=== PATIENT | female | born 1940 | race Caucasian/White ===

== ENCOUNTER 2016-07-22 12:05 | Emergency (ER) | payer MEDICARE, BC ==
[~2016-07-22] VITALS: Ht 160 cm; Wt 59.1 kg
[~2016-07-22 12:05] MED LIST: ALEVE 220MG220 MG PO; ATIVAN 0.50.5 MG/TAB; ATIVAN 1MG T1 MG/TAB PO; CIPRO 100MG TA100 MG PO; CRESTOR 10MG10 MG PO; FISH OIL1000 MG PO; KLONOPIN 1MG1 MG PO; LEVOXYL0.075 MG PO; LITHOBID 3300 MG/TAB; MULTIPLE VITAMI1 CAP PO; NORCO 325 MG-51 TAB PO; PAXIL 20MG20 MG PO; PAXIL20 MG PO; PAXIL40 MG; PROZAC 10MG10 MG PO; REMERON 15M15 MG/TA1; REMERON 15M15 MG/TA1 PO; SYNTHROID0.05 MG/TA PO; XANAX0.5 MG PO; ZOCOR 40MG40 MG PO; ZOCOR5 MG PO
[2016-07-22 12:09] VITALS: TEMP 98.5
[2016-07-22] MEDS ORDERED: BUSPAR5 MG PO (12:14)
[2016-07-22] MEDS ORDERED: MAGNESIUM100 MG PO (12:15)
[2016-07-22 13:19] LABS: BASO # 0.1 (0.0-0.2); BASO % 0.7 % (0.0-2.0); EOS # 0.1 (0.0-0.7); EOS % 1.7 % (0-4.0); GRAN # 5.3 (1.4-6.5); GRAN % 74.7 % (42.2-75.2); HEMOGLOBIN 14.3 g/dl (12.5-16.0); LYMPH # 1.1 (1.2-3.4); LYMPH % 15.3 % (20.0-51.0); MEAN CELL VOLUME 94 fl (80.0-100.0); MEAN CORPUSCULAR HEMOGLOBIN 31 pg (27.0-31.0); MEAN CORPUSCULAR HGB CONC 33 g/dl (33.0-37.0); MEAN PLATELET VOLUME 9.1 fl (7.4-10.4); MONO # 0.5 (0.1-0.6); MONO % 7.5 % (1.7-9.3); PLATELET COUNT 265 K/mm3 (130-400); RED BLOOD COUNT 4.59 M/mm3 (4.10-5.30); REDCELL DISTRIBUTION WIDTH-CV 12.1 % (11.5-14.5); WHITE BLOOD COUNT 7.1 K/mm3 (4.8-10.8)
[2016-07-22 13:35] LABS: ADJUSTED CALCIUM 9.4 mg/dL (8.4-10.2); ALANINE AMINOTRANSFERASE 30 U/L (9-52); ALBUMIN 4.4 gm/dL (3.5-5.0); ALKALINE PHOSPHATASE 80 U/L (50-136); ANION GAP 11 mmol/L (7-16); BILIRUBIN,TOTAL 0.7 mg/dL (0.0-1.0); BLOOD UREA NITROGEN 13 mg/dL (7-17); CALCIUM 9.7 mg/dL (8.4-10.2); CARBON DIOXIDE 29 mmol/L (22-30); CHLORIDE 100 mmol/L (98-107); CREATININE, serum 0.71 mg/dL (0.52-1.25); GLUCOSE 101 mg/dL (74-106); POTASSIUM 4.1 mmol/L (3.4-5.0); SODIUM 141 mmol/L (137-145); TOTAL PROTEIN 7.7 gm/dL (6.4-8.2)
[2016-07-22 13:36] LABS: C-REACTIVE PROTEIN < 0.5 mg/dL (0.0-0.9)
[2016-07-22 13:45] LABS: TROPONIN-I < 0.012 ng/mL (0.000-0.034)
[2016-07-22] MEDS ORDERED: MAGIC MOUTH PO (15:13)
[2016-07-22 15:17] VITALS: BP 115/52; PULSE 90
[2016-07-22 16:27] LABS: ERYTHROCYTE SEDIMENTATION RATE 7 mm/hr (0-30)
== END 2016-07-22 15:21 | disposition home or self-care (01) ==
LOC: COL.ER 12:05
PROVIDERS: Physician Assistant
DX: M25.512 Pain in left shoulder (principal); R51 Headache; G89.29 Other chronic pain
CPT/HCPCS: J2060; J2270; J2405

== ENCOUNTER 2016-07-28 16:51 | Emergency (ER) | payer MEDICARE, BC ==
[~2016-07-28] VITALS: Ht 160 cm; Wt 59.1 kg
[~2016-07-28 16:51] MED LIST changes: +BUSPAR5 MG PO; +MAGIC MOUTH PO; +MAGNESIUM100 MG PO
[2016-07-28 17:05] VITALS: BP 117/65; TEMP 98.3
[2016-07-28 17:40] LABS: BASO % 0.7 % (0.0-2.0); EOS # 0.3 (0.0-0.7); EOS % 4.6 % (0-4.0); GRAN # 4.4 (1.4-6.5); GRAN % 70.8 % (42.2-75.2); HEMATOCRIT 38.5 % (37.0-47.0); HEMOGLOBIN 12.8 g/dl (12.5-16.0); LYMPH # 0.9 (1.2-3.4); LYMPH % 13.8 % (20.0-51.0); MEAN CELL VOLUME 94 fl (80.0-100.0); MEAN CORPUSCULAR HEMOGLOBIN 31 pg (27.0-31.0); MEAN CORPUSCULAR HGB CONC 33 g/dl (33.0-37.0); MEAN PLATELET VOLUME 9.2 fl (7.4-10.4); MONO # 0.6 (0.1-0.6); MONO % 9.6 % (1.7-9.3); PLATELET COUNT 264 K/mm3 (130-400); WHITE BLOOD COUNT 6.2 K/mm3 (4.8-10.8)
[2016-07-28 17:51] LABS: ADJUSTED CALCIUM 8.9 mg/dL (8.4-10.2); ALANINE AMINOTRANSFERASE 34 U/L (9-52); ALBUMIN 3.7 gm/dL (3.5-5.0); ALKALINE PHOSPHATASE 76 U/L (50-136); ANION GAP 12 mmol/L (7-16); BILIRUBIN,TOTAL 0.5 mg/dL (0.0-1.0); BLOOD UREA NITROGEN 11 mg/dL (7-17); CALCIUM 8.7 mg/dL (8.4-10.2); CARBON DIOXIDE 26 mmol/L (22-30); CHLORIDE 102 mmol/L (98-107); CREATININE, serum 0.67 mg/dL (0.52-1.25); GLUCOSE 74 mg/dL (74-106); POTASSIUM 3.9 mmol/L (3.4-5.0); SODIUM 140 mmol/L (137-145); TOTAL PROTEIN 6.8 gm/dL (6.4-8.2)
[2016-07-28 17:52] LABS: AMPHETAMINE URINE NEGATIVE; BARBITURATES URINE NEGATIVE; BENZODIAZEPINES URINE POSITIVE; BUPRENORPHINE URINE NEGATIVE; METHADONE URINE NEGATIVE; OPIATES URINE NEGATIVE; OXYCODONE URINE NEGATIVE; PHENCYCLIDINE URINE NEGATIVE; PROPOXYPHENE URINE NEGATIVE; THC CANNABINOIDS URINE NEGATIVE
[2016-07-28 17:52] LABS: ACETAMINOPHEN < 10 ug/mL (10-30); SALICYLATE < 1.0 mg/dL
[2016-07-28 21:11] VITALS: PULSE 80
== END 2016-07-28 21:12 | disposition home or self-care (01) ==
LOC: COL.ER 16:51
PROVIDERS: Emergency Medicine
DX: R45.851 Suicidal ideations (principal); F32.9 Major depressive disorder, single episode, unspecified; F41.9 Anxiety disorder, unspecified

== ENCOUNTER 2016-08-09 13:15 | Outpatient (RCR) | payer MEDICARE, BC ==
[2016-08-13] MEDS ORDERED: FLEXERIL 1010 MG/TAB PO (17:43)
[2016-08-13] MEDS ORDERED: MOTRIN 400400 MG/TAB PO (17:43)
[2016-09-28] MEDS ORDERED: LEXAPRO 10MG10 MG PO (08:29)
[2016-09-28] MEDS ORDERED: BUSPIRONE HCL7.5 MG PO (08:30)
[2016-09-28] MEDS ORDERED: XANAX 0.5MG0.5 MG PO (08:34)
== END 2016-10-02 13:03 | disposition home or self-care (01) ==
LOC: WSPT 13:15
DX: M62.838 Other muscle spasm (principal)
CPT/HCPCS: G0283-GP; G8981-GP; G8982-GP; G8983-GP

== ENCOUNTER 2016-08-13 12:25 | Emergency (ER) | payer MEDICARE, BC ==
[~2016-08-13] VITALS: Ht 160 cm; Wt 58.7 kg
[2016-08-13 12:28] VITALS: TEMP 98
[2016-08-13 13:46] LABS: BASO % 0.7 % (0.0-2.0); EOS # 0.2 (0.0-0.7); EOS % 3.2 % (0-4.0); GRAN # 4.1 (1.4-6.5); GRAN % 69.8 % (42.2-75.2); HEMATOCRIT 41.4 % (37.0-47.0); HEMOGLOBIN 13.6 g/dl (12.5-16.0); LYMPH # 1.1 (1.2-3.4); LYMPH % 17.8 % (20.0-51.0); MEAN CELL VOLUME 95 fl (80.0-100.0); MEAN CORPUSCULAR HEMOGLOBIN 31 pg (27.0-31.0); MEAN CORPUSCULAR HGB CONC 33 g/dl (33.0-37.0); MEAN PLATELET VOLUME 9.2 fl (7.4-10.4); MONO # 0.5 (0.1-0.6); MONO % 8.2 % (1.7-9.3); PLATELET COUNT 276 K/mm3 (130-400); RED BLOOD COUNT 4.35 M/mm3 (4.10-5.30); REDCELL DISTRIBUTION WIDTH-CV 11.8 % (11.5-14.5); WHITE BLOOD COUNT 5.9 K/mm3 (4.8-10.8)
[2016-08-13 14:03] LABS: ADJUSTED CALCIUM 9.2 mg/dL (8.4-10.2); ALANINE AMINOTRANSFERASE 33 U/L (9-52); ALBUMIN 4.3 gm/dL (3.5-5.0); ALKALINE PHOSPHATASE 85 U/L (50-136); ANION GAP 12 mmol/L (7-16); BILIRUBIN,TOTAL 0.7 mg/dL (0.0-1.0); BLOOD UREA NITROGEN 12 mg/dL (7-17); CALCIUM 9.4 mg/dL (8.4-10.2); CARBON DIOXIDE 28 mmol/L (22-30); CHLORIDE 100 mmol/L (98-107); CREATININE, serum 0.68 mg/dL (0.52-1.25); GLUCOSE 94 mg/dL (74-106); POTASSIUM 3.8 mmol/L (3.4-5.0); SODIUM 141 mmol/L (137-145); TOTAL PROTEIN 7.6 gm/dL (6.4-8.2)
[2016-08-13 14:04] LABS: ACETAMINOPHEN < 10 ug/mL (10-30); SALICYLATE < 1.0 mg/dL
[2016-08-13 14:52] LABS: AMPHETAMINE URINE NEGATIVE; BARBITURATES URINE NEGATIVE; BENZODIAZEPINES URINE POSITIVE; BUPRENORPHINE URINE NEGATIVE; METHADONE URINE NEGATIVE; OPIATES URINE NEGATIVE; OXYCODONE URINE NEGATIVE; PHENCYCLIDINE URINE NEGATIVE; PROPOXYPHENE URINE NEGATIVE; THC CANNABINOIDS URINE NEGATIVE
[2016-08-13] MEDS ORDERED: FLEXERIL 1010 MG/TAB PO (17:43)
[2016-08-13] MEDS ORDERED: MOTRIN 400400 MG/TAB PO (17:43)
[2016-08-13 19:08] VITALS: BP 162/84; PULSE 82
== END 2016-08-13 19:10 ==
LOC: COL.ER 12:25
PROVIDERS: Physician Assistant
DX: R45.851 Suicidal ideations (principal); F32.9 Major depressive disorder, single episode, unspecified; F41.9 Anxiety disorder, unspecified

== ENCOUNTER → 2016-09-04 | Outpatient (CLI) | payer MEDICARE, BC ==
[~2016-09-04] MED LIST changes: +BUSPIRONE HCL7.5 MG PO; +FLEXERIL 1010 MG/TAB PO; +LEXAPRO 10MG10 MG PO; +MOTRIN 400400 MG/TAB PO; +XANAX 0.5MG0.5 MG PO
== END ==
LOC: MC.RAD 09:20
DX: Z12.31 Encounter for screening mammogram for malignant neoplasm of breast (principal)

== ENCOUNTER 2016-09-28 08:10 | Observation (INO) | payer MEDICARE, BC ==
[~2016-09-28] VITALS: Ht 165.1 cm; Wt 61.4 kg
[~2016-09-28 08:10] MED LIST changes: -BUSPIRONE HCL7.5 MG PO; -LEXAPRO 10MG10 MG PO; -XANAX 0.5MG0.5 MG PO
[2016-09-28] MEDS ORDERED: LEXAPRO 10MG10 MG PO (08:29)
[2016-09-28] MEDS ORDERED: BUSPIRONE HCL7.5 MG PO (08:30)
[2016-09-28] MEDS ORDERED: XANAX 0.5MG0.5 MG PO (08:34)
[2016-09-28 09:22] LABS: BASO % 0.8 % (0.0-2.0); EOS # 0.1 (0.0-0.7); EOS % 2.1 % (0-4.0); GRAN # 3.4 (1.4-6.5); GRAN % 71.9 % (42.2-75.2); HEMATOCRIT 42.2 % (37.0-47.0); HEMOGLOBIN 14.2 g/dl (12.5-16.0); LYMPH # 0.8 (1.2-3.4); LYMPH % 16.3 % (20.0-51.0); MEAN CELL VOLUME 92 fl (80.0-100.0); MEAN CORPUSCULAR HEMOGLOBIN 31 pg (27.0-31.0); MEAN CORPUSCULAR HGB CONC 34 g/dl (33.0-37.0); MONO # 0.4 (0.1-0.6); MONO % 8.3 % (1.7-9.3); PLATELET COUNT 252 K/mm3 (130-400); RED BLOOD COUNT 4.61 M/mm3 (4.10-5.30); REDCELL DISTRIBUTION WIDTH-CV 11.7 % (11.5-14.5); WHITE BLOOD COUNT 4.7 K/mm3 (4.8-10.8)
[2016-09-28 09:51] LABS: ADJUSTED CALCIUM 9.3 mg/dL (8.4-10.2); ALANINE AMINOTRANSFERASE 29 U/L (9-52); ALBUMIN 4.1 gm/dL (3.5-5.0); ALKALINE PHOSPHATASE 62 U/L (50-136); ANION GAP 12 mmol/L (7-16); BILIRUBIN,TOTAL 0.6 mg/dL (0.0-1.0); BLOOD UREA NITROGEN 18 mg/dL (7-17); CALCIUM 9.4 mg/dL (8.4-10.2); CARBON DIOXIDE 27 mmol/L (22-30); CHLORIDE 100 mmol/L (98-107); CREATININE, serum 0.63 mg/dL (0.52-1.25); GLUCOSE 100 mg/dL (74-106); LIPASE 78 U/L (23-300); MAGNESIUM 1.9 mg/dL (1.6-2.3); PHOSPHOROUS 3.5 mg/dL (2.5-4.5); POTASSIUM 4.6 mmol/L (3.4-5.0); SODIUM 140 mmol/L (137-145); TOTAL PROTEIN 6.9 gm/dL (6.4-8.2)
[2016-09-28 09:54] LABS: ACETAMINOPHEN < 10 ug/mL (10-30); SALICYLATE < 1.0 mg/dL
[2016-09-28 10:04] LABS: PH 7 (5-8); SQUAMOUS EPITHELIAL 0-2 /hpf; URINE APPEARANCE Clear; URINE BACTERIA None Seen /hpf; URINE BILIRUBIN Negative (NEGATIVE); URINE BLOOD Negative (NEGATIVE); URINE COLOR Yellow; URINE GLUCOSE Negative (NEGATIVE); URINE KETONE Negative (NEGATIVE); URINE RBC 0-2 /hpf; URINE UROBILINOGEN Negative (NEGATIVE); URINE WBC 0-2 /hpf
[2016-09-28 10:04] LABS: TROPONIN-I < 0.012 ng/mL (0.000-0.034)
[2016-09-28 10:15] LABS: AMPHETAMINE URINE NEGATIVE; BARBITURATES URINE NEGATIVE; BENZODIAZEPINES URINE POSITIVE; BUPRENORPHINE URINE NEGATIVE; METHADONE URINE NEGATIVE; OPIATES URINE NEGATIVE; OXYCODONE URINE NEGATIVE; PHENCYCLIDINE URINE NEGATIVE; PROPOXYPHENE URINE NEGATIVE; THC CANNABINOIDS URINE NEGATIVE
[2016-09-28 19:45] VITALS: BP 122/70; PULSE 75; TEMP 98
[2016-09-28 20:16] VITALS: BP 140/68; PULSE 70; TEMP 97.7
== END 2016-09-29 03:57 ==
LOC: COL.ER 08:10 → ICU 15:41
PROVIDERS: Emergency Medicine
DX: R45.851 Suicidal ideations (principal); F33.2 Major depressive disorder, recurrent severe without psychotic features; F41.0 Panic disorder [episodic paroxysmal anxiety]; F41.1 Generalized anxiety disorder
CPT/HCPCS: G0378

== ENCOUNTER → 2017-09-05 | Outpatient (CLI) | payer MEDICARE, BC ==
[~2017-09-05] MED LIST changes: +BUSPIRONE HCL7.5 MG PO; +LEXAPRO 10MG10 MG PO; +XANAX 0.5MG0.5 MG PO
== END ==
LOC: MC.RAD 14:28
DX: Z12.31 Encounter for screening mammogram for malignant neoplasm of breast (principal)

== ENCOUNTER → 2018-09-08 | Outpatient (CLI) | payer MEDICARE, BC | LOC: MC.RAD 09:30 | DX: Z12.31 Encounter for screening mammogram for malignant neoplasm of breast (principal) ==

== ENCOUNTER 2018-11-29 12:42 | Emergency (ER) | payer OTHER, BC, MEDICARE ==
[~2018-11-29] VITALS: Ht 160 cm; Wt 70.9 kg
[2018-11-29] MEDS ORDERED: BRINTELLIX10 PO (13:12)
[2018-11-29] MEDS ORDERED: NEURONTIN400 MG/CAP PO (13:13)
[2018-11-29] MEDS ORDERED: ATIVAN 0.50.5 MG/TAB PO (13:13)
[2018-11-29] MEDS ORDERED: SINEQUAN75 MG PO (13:14)
[2018-11-29 15:09] VITALS: BP 128/66; PULSE 74; TEMP 98.3
== END 2018-11-29 15:05 | disposition home or self-care (01) ==
LOC: COL.ER 12:42
DX: S30.0XXA Contusion of lower back and pelvis, initial encounter (principal); S40.022A Contusion of left upper arm, initial encounter; W10.9XXA Fall (on) (from) unspecified stairs and steps, initial encounter; Y92.009 Unspecified place in unspecified non-institutional (private) residence as the place of occurrence of the external cause
CPT/HCPCS: J1885

== ENCOUNTER 2018-12-06 15:17 | Observation (INO) | payer MEDICARE, BC ==
[~2018-12-06] VITALS: Ht 160 cm; Wt 70.0 kg
[~2018-12-06 15:17] MED LIST changes: +ATIVAN 0.50.5 MG/TAB PO; +BRINTELLIX10 PO; +NEURONTIN400 MG/CAP PO; +SINEQUAN75 MG PO
[2018-12-06 16:00] LABS: BASO # 0.1 (0.0-0.2); BASO % 0.9 % (0.0-2.0); EOS # 0.2 (0.0-0.7); EOS % 2.6 % (0-4.0); GRAN # 4.2 (1.4-6.5); GRAN % 71.6 % (42.2-75.2); HEMATOCRIT 40.4 % (37.0-47.0); HEMOGLOBIN 13.3 g/dl (12.5-16.0); LYMPH # 0.9 (1.2-3.4); LYMPH % 16.1 % (20.0-51.0); MEAN CELL VOLUME 94 fl (80.0-100.0); MEAN CORPUSCULAR HEMOGLOBIN 31 pg (27.0-31.0); MEAN CORPUSCULAR HGB CONC 33 g/dl (33.0-37.0); MEAN PLATELET VOLUME 9.2 fl (7.4-10.4); MONO # 0.5 (0.1-0.6); MONO % 8.5 % (1.7-9.3); PLATELET COUNT 228 K/mm3 (130-400); REDCELL DISTRIBUTION WIDTH-CV 12.3 % (11.5-14.5)
[2018-12-06 16:03] LABS: PROTHROMBIN TIME 11.6 SECONDS (9.7-12.8)
[2018-12-06 16:07] LABS: ALANINE AMINOTRANSFERASE 17 U/L (9-52); ALBUMIN 3.8 gm/dL (3.5-5.0); ALKALINE PHOSPHATASE 74 U/L (50-136); ANION GAP 10 mmol/L (7-16); AST,SGOT 36 U/L (15-37); BILIRUBIN,TOTAL 0.4 mg/dL (0.0-1.0); BLOOD UREA NITROGEN 12 mg/dL (7-17); CALCIUM 8.9 mg/dL (8.4-10.2); CARBON DIOXIDE 25 mmol/L (22-30); CHLORIDE 105 mmol/L (98-107); CREATINE KINASE 54 U/L (30-135); CREATININE, serum 0.72 (0.52-1.25); GLUCOSE 126 mg/dL (74-106); POTASSIUM 3.9 mmol/L (3.4-5.0); SODIUM 140 mmol/L (137-145); TOTAL PROTEIN 6.7 gm/dL (6.4-8.2)
[2018-12-06] MEDS ORDERED: PROBIOTIC ACID1 EAC3 PO (16:17)
[2018-12-06 16:25] LABS: TROPONIN-I < 0.012 ng/mL (0.000-0.035)
--- NOTE | 2018-12-06 19:45 | NUR ---
Patient arrived to medical floor at this time.
[2018-12-06 21:26] VITALS: BP 143/55; PULSE 63; TEMP 97.6
--- NOTE | 2018-12-06 21:45 | NUR ---
Patient assessed. Reported pain to head. Ice packs help to area. Stated that she has had problems with headaches since she fell down the stairs last week. Stated she did go to the ER and was told she may have a concussion. Peripheral IV to left forearm flushed. Site is without redness, warmth, and swelling. NS running at 30 ml/hr. On oxygen at 2 L/min via NC. Denies having SOB and dyspnea. LS CTA. On tele. Denies having chest pain and discomfort at this time. BSAx4. Abdomen soft and non-tender. Voices no questions, needs, or concerns at this time. Given sandwich as requested. In bed watching TV at this time. Call light is within reach.
[2018-12-06 23:53] VITALS: BP 138/58; PULSE 69
--- NOTE | 2018-12-06 23:56 | NUR ---
PT WAS ASSISTED TO BATHROOM, BUT BEFORE SHE GOT UP SHE ADVISED THAT HER LEFT CHEST WAS STARTING TO HURT LIKE IT DID BEFORE AND SHE RATED IT AT A 3/10. CALLED RIA EISENBERG AND ADVISED OF PT'S CHEST PAIN. ALSO THAT NITRO-BID WAS PLACED ON LEFT SIDE OF CHEST AND GIVEN ICE REQUESTED BY PT. RECEIVED ORDERS TO GIVE 2MG IV MORPHINE IF VS GOOD AND EKG. RT NOTIFIED AND EKG DONE, ALSO MORPHINE GIVEN, VS WNL.
--- NOTE | 2018-12-07 00:01 | NUR ---
CALLED RIA EISENBERG TO ADVISED OF EKG, BUT HOUSESUPERVISOR IRVING ANSWERED PHONE AND INFO GIVEN TO HER.
[2018-12-07 00:16] VITALS: BP 139/48; PULSE 69; TEMP 97.7
--- NOTE | 2018-12-07 00:25 | NUR ---
PT ADVISES THAT PAIN IS BETTER. CALL LIGHT WITHIN REACH.
--- NOTE | 2018-12-07 01:13 | NUR ---
PT HAD MODERATE AMOUNT OF BLOOD WITH STOOL IN TOILET. PT ADVISED THAT SHE DOES HAVE HEMROIDS. CHECKED RECTAL AREA AND ONE OF PT'S HEMROIDS WAS OPEN AND RED. PT HAD SOME BLOOD ON UNDERWEAR. HEMROID WAS NOT BLEEDING WHEN EXAMINED. CALLED RIA EISENBERG AND SHE WAS NOTFIED, WAS ADVISED TO PASS IT ONTO DAYSHIFT.
[2018-12-07 03:39] VITALS: BP 142/65; PULSE 63; TEMP 97.9
--- NOTE | 2018-12-07 05:13 | NUR ---
Patient stated that she was having chest pain, worse when taking deep breaths on left side. Given 1 mg PRN Morphine per orders, which has been effective. NS continues to run at 30 ml/hr to peripheral IV to left forearm. Calls for assistance when needed. Continues to have ice pack for headache, which patient reports helps most of the time. Denies having any questions, needs, or concerns at this time. Resting in bed with eyes closed at this time. Call light is within reach.
--- NOTE | 2018-12-07 07:00 | NUR ---
Report given to day shift nurse.
[2018-12-07 07:52] VITALS: BP 134/75; PULSE 67; TEMP 98.9
--- NOTE | 2018-12-07 08:08 | NUR ---
Pt alert and oriented. Pt feeling alot of anxiety this am and is worried about home meds. Pt has labored breathing with 2L oxygen via nasal cannula and saturation in mid 90's. Pt states it is most likely d/t anxiety. Pt reports some left chest tightness. Pt 1 assist to bathroom. Pt IV intact no redness or infiltration noted. Pt has call light in reach and will reassess pain/anxiety after morphine given.
[2018-12-07 08:45] LABS: BASO # 0.1 (0.0-0.2); BASO % 0.9 % (0.0-2.0); EOS # 0.2 (0.0-0.7); GRAN # 3.8 (1.4-6.5); GRAN % 70.1 % (42.2-75.2); HEMATOCRIT 43.4 % (37.0-47.0); HEMOGLOBIN 14.3 g/dl (12.5-16.0); LYMPH # 0.9 (1.2-3.4); LYMPH % 16.6 % (20.0-51.0); MEAN CELL VOLUME 95 fl (80.0-100.0); MEAN CORPUSCULAR HEMOGLOBIN 31 pg (27.0-31.0); MEAN CORPUSCULAR HGB CONC 33 g/dl (33.0-37.0); MEAN PLATELET VOLUME 9.8 fl (7.4-10.4); MONO # 0.5 (0.1-0.6); MONO % 9.2 % (1.7-9.3); PLATELET COUNT 210 K/mm3 (130-400); RED BLOOD COUNT 4.58 M/mm3 (4.10-5.30); REDCELL DISTRIBUTION WIDTH-CV 12.1 % (11.5-14.5)
[2018-12-07 09:00] LABS: ALANINE AMINOTRANSFERASE 21 U/L (9-52); ALBUMIN 3.8 gm/dL (3.5-5.0); ALKALINE PHOSPHATASE 79 U/L (50-136); ANION GAP 8 mmol/L (7-16); AST,SGOT 36 U/L (15-37); BILIRUBIN,TOTAL 0.6 mg/dL (0.0-1.0); BLOOD UREA NITROGEN 11 mg/dL (7-17); CARBON DIOXIDE 30 mmol/L (22-30); CHLORIDE 104 mmol/L (98-107); CREATININE, serum 0.69 (0.52-1.25); GLUCOSE 96 mg/dL (74-106); MAGNESIUM 2.1 mg/dL (1.6-2.3); PHOSPHOROUS 2.7 mg/dL (2.5-4.5); POTASSIUM 4.6 mmol/L (3.4-5.0); SODIUM 142 mmol/L (137-145); TOTAL PROTEIN 6.9 gm/dL (6.4-8.2)
[2018-12-07 09:18] LABS: TROPONIN-I < 0.012 ng/mL (0.000-0.035)
--- NOTE | 2018-12-07 11:02 | NUR ---
JENNY met with the patient and her daughter and [facility] [place] , to discuss a discharge plan. The pt lives alone in [place] and has a CPAP and receives supplies from [employer]. The pt reports independence with ADLs. The pt's PCP is Dr. Briones and pt receives her medications from [email or web address] with no difficulties. The pt does not have advanced directives in the EMR but reports she does have them completed. The pt plans to return home upon discharge. There are no additional needs at this time.
[2018-12-07 12:36] VITALS: BP 133/51; PULSE 71; TEMP 98.4
[2018-12-07 17:13] VITALS: BP 120/58; PULSE 73; TEMP 97.8
--- NOTE | 2018-12-07 18:30 | NUR ---
Pt alert and oriented. Pt denies pain or SOB at rest. Pt has nitro paste to left chest. Pt IV in RW patent no redness or infiltration. Pt has visitors in and out today. Pt has call light in reach and denies needs at this time. Pt NPO after midnight tonight for stress test order by DR. Martinez.
[2018-12-07 19:51] VITALS: BP 109/67; PULSE 77; TEMP 98.3
--- NOTE | 2018-12-07 20:20 | NUR ---
Patient assessed at this time. Alert and oriented x 4, and able to make needs known. Denies having pain and discomfort. Did request ice pack for head, stating that she likes the way it feels on her head, but again denied having pain and discomfort to head. Peripheral IV to right wrist flushed. Site is without redness, warmth, swelling, and pain. Patient on oxygen at 2 L/min via NC. Denies having SOB and dyspnea. LS CTA. Respirations even and unlabored. HRR. Telemetry in place. Denies having chest pain and discomfort. Continues to receive Nitro paste per orders. BSAx4. Abdomen is soft and non-tender. No edema noted. Patient sitting up in bed reading at this time. Denies having any questions, needs, or concerns. Reminded patient that she is to be NPO after midnight for stress test tomorrow. Voices understanding. Call light is within reach.
[2018-12-08 00:14] VITALS: BP 116/47; PULSE 65; TEMP 97.4
[2018-12-08 03:42] VITALS: BP 127/51; PULSE 67; TEMP 97.4
--- NOTE | 2018-12-08 05:31 | NUR ---
Patient has been NPO since midnight for stress test. Took medication with sips of water. Denies having any questions, needs, or concerns. Denies having any chest pain or discomfort. Resting in bed with call light within reach.
[2018-12-08 06:10] VITALS: BP 127/51; PULSE 67
--- NOTE | 2018-12-08 08:18 | NUR ---
Assessment completed, alert/oriented, vital signs stable, denies any chest pain or discomfort, serial Troponin negative, heart RRR/distal pulses are palapble, SR on tele, lungs CTA/ no reps.difficulty noted, she is scheduled for a treadmill stress test this morning, she has been NPO, denies needs at [facility]
[2018-12-08 08:22] VITALS: BP 129/55; PULSE 71; TEMP 97.9
--- NOTE | 2018-12-08 09:00 | NUR ---
Patient is going down for her treadmill stress test at this time
[2018-12-08 11:01] VITALS: BP 153/60; PULSE 72; TEMP 98.4
--- NOTE | 2018-12-08 12:09 | NUR ---
Discharge instructions reviewed with the patient, instructed to follow up with PCP and cardiology as noe, instructed to continue previous home meds as prior to hospitilization, NO new meds or changes made, IV removed from right wrist, tele removed and taken to ICU, she is dressed and eating lunch, family present, I will personally escort them out the door
== END 2018-12-08 14:39 | disposition home or self-care (01) ==
LOC: COL.ER 15:17 → MEDICAL 17:24
PROVIDERS: Emergency Medicine; ADMIT Family Medicine
DX: R07.9 Chest pain, unspecified (principal); E78.5 Hyperlipidemia, unspecified; E03.9 Hypothyroidism, unspecified; F41.9 Anxiety disorder, unspecified; F32.9 Major depressive disorder, single episode, unspecified; Z90.710 Acquired absence of both cervix and uterus; Z87.891 Personal history of nicotine dependence; Z88.8 Allergy status to other drugs, medicaments and biological substances; M19.90 Unspecified osteoarthritis, unspecified site; K58.9 Irritable bowel syndrome, unspecified
CPT/HCPCS: 99222-AI; 99233-AI; 99239; A9500; G0378; J1650; J2270; J7030

== ENCOUNTER 2019-10-14 11:13 | Emergency (ER) | payer MEDICARE, BC ==
[~2019-10-14] VITALS: Ht 160 cm; Wt 66.4 kg
[~2019-10-14 11:13] MED LIST changes: +PROBIOTIC ACID1 EAC3 PO
[2019-10-14 11:18] VITALS: TEMP 97.8
[2019-10-14 11:52] LABS: BASO % 0.5 % (0.0-2.0); EOS # 0.1 (0.0-0.7); EOS % 2.1 % (0-4.0); GRAN # 5.1 (1.4-6.5); GRAN % 77.2 % (42.2-75.2); HEMATOCRIT 46.1 % (37.0-47.0); HEMOGLOBIN 15.2 g/dl (12.5-16.0); LYMPH # 0.8 (1.2-3.4); LYMPH % 11.7 % (20.0-51.0); MEAN CELL VOLUME 96 fl (80.0-100.0); MEAN CORPUSCULAR HEMOGLOBIN 32 pg (27.0-31.0); MEAN CORPUSCULAR HGB CONC 33 g/dl (33.0-37.0); MEAN PLATELET VOLUME 9.2 fl (7.4-10.4); MONO # 0.5 (0.1-0.6); MONO % 8.2 % (1.7-9.3); PLATELET COUNT 222 K/mm3 (130-400); REDCELL DISTRIBUTION WIDTH-CV 12.6 % (11.5-14.5)
[2019-10-14 11:58] LABS: ALANINE AMINOTRANSFERASE 37 U/L (4-34); ALBUMIN 4.4 gm/dL (3.5-5.0); ALKALINE PHOSPHATASE 96 U/L (50-136); ANION GAP 9 mmol/L (7-16); AST,SGOT 37 U/L (15-37); BILIRUBIN,TOTAL 0.6 mg/dL (0.0-1.0); BLOOD UREA NITROGEN 16 mg/dL (7-17); CALCIUM 9.5 mg/dL (8.4-10.2); CARBON DIOXIDE 27 mmol/L (22-30); CHLORIDE 103 mmol/L (98-107); CREATININE, serum 0.84 (0.52-1.25); GLUCOSE 164 mg/dL (74-106); POTASSIUM 4.1 mmol/L (3.4-5.0); SODIUM 139 mmol/L (137-145); TOTAL PROTEIN 7.6 gm/dL (6.4-8.2)
[2019-10-14 12:11] LABS: INR 0.9 (0.8-3.0); PROTHROMBIN TIME 10.5 SECONDS (9.7-12.8)
[2019-10-14 12:13] LABS: TROPONIN-I < 0.012 ng/mL (0.000-0.035)
[2019-10-14 12:14] LABS: PARTIAL THROMBOPLASTIN TIME 25.6 SECONDS (26.0-37.0)
[2019-10-14] MEDS ORDERED: FLEXERIL5 MG PO (13:06)
[2019-10-14] MEDS ORDERED: VOLTAREN 75 DR75 MG PO (13:06)
[2019-10-14 13:30] VITALS: BP 121/54; PULSE 80
== END 2019-10-14 13:30 | disposition home or self-care (01) ==
LOC: COL.ER 11:13
PROVIDERS: Family Medicine
DX: R07.89 Other chest pain (principal); Z90.89 Acquired absence of other organs
CPT/HCPCS: J1885; J2270; J2405

== ENCOUNTER → 2019-11-30 | Outpatient (CLI) | payer MEDICARE, BC ==
[~2019-11-30] MED LIST changes: +FLEXERIL5 MG PO; +VOLTAREN 75 DR75 MG PO
== END ==
LOC: MC.RAD 12:53
DX: Z12.31 Encounter for screening mammogram for malignant neoplasm of breast (principal)